=== PATIENT | female | born 1950 | race Caucasian/White ===

== ENCOUNTER → 2016-07-29 | Outpatient (CLI) | payer OTHER ==
[~2016-07-29] MED LIST: LEVAQUIN PO; NORCO1 TAB 10/3 PO; PRISTIQ100 MG PO; TEMAZEPAM30 MG PO; TOPAMAX PO; VITAMIN B12 IM; WELLBUTRIN PO; XANAX0.5 MG PO
[2016-07-29 12:25] LABS: BUN/CREATININE RATIO 9.09; CALCIUM SERUM 9.2 mg/dL (8.4-10.2); CREATININE SERUM 1.1 mg/dL (0.6-1.4); GLOM FILT RATE Estimated 53.1 mL/min (>60); POTASSIUM 4.4 mmol/L (3.5-5.1)
== END | disposition home or self-care (01) ==
LOC: CSSDAY 11:01
PROVIDERS: Family Medicine
DX: M81.0 Age-related osteoporosis without current pathological fracture (principal)
CPT/HCPCS: 80048; 96374; J0897; J3489